=== PATIENT | male | born 1950 | race Caucasian/White ===

== ENCOUNTER 2023-02-09 13:55 | Emergency (ER) | payer BC, MEDICARE ==
[~2023-02-09] VITALS: Ht 182.9 cm; Wt 85.3 kg
[~2023-02-09 13:55] MED LIST: AEC81 PO; DILT180C77 PO; DUTA.5 PO; ESOM40CA PO; FISH1CAP20 PO; HYDR25TA PO; LISI5TAB21 PO; METO-391 PO
[2023-02-09 15:28] LABS: BASOPHILS # (AUTO) 0.03 K/uL (0.00-0.20); BASOPHILS % (AUTO) 0.6 % (0.0-5.0); EOSINOPHILS # (AUTO) 0.01 K/uL (0.00-0.70); EOSINOPHILS % (AUTO) 0.2 % (0.0-8.0); HEMATOCRIT 34.2 % (42-54); IMMATURE GRANULOCYTE ABSOLUTE 0.03 K/uL (0-1); LYMPHOCYTES # (AUTO) 0.5 K/uL (1.0-4.8); LYMPHOCYTES % (AUTO) 11.1 % (21.0-51.0); MEAN CORPUSCULAR HEMOGLOBIN 31.9 pg (27.0-33.0); MEAN CORPUSCULAR HGB CONC 33.9 g/dL (32.0-36.0); MONOCYTES # (AUTO) 0.6 K/uL (0.1-1.0); MONOCYTES % (AUTO) 13.1 % (3.0-13.0); NEUTROPHILS # (AUTO) 3.5 K/uL (1.8-7.7); NEUTROPHILS % (AUTO) 74.4 % (40.0-77.0); PLATELET COUNT (AUTO) 181 K/uL (130-400); RED BLOOD CELL COUNT(AUTO) 3.64 MIL/uL (4.50-6.20); WHITE BLOOD COUNT (AUTO) 4.7 K/uL (4.8-10.8)
[2023-02-09 15:37] LABS: INR < 0.93 (0.85-1.15); PROTHROMBIN TIME 10.1 SEC (9.6-11.6)
[2023-02-09 15:39] LABS: PARTIAL THROMBOPLASTIN TIME 26.5 SEC (26.3-35.5)
[2023-02-09 15:56] LABS: APPEARANCE,URINE CLEAR (CLEAR); BILIRUBIN,URINE NEGATIVE (NEGATIVE); COLOR,URINE YELLOW (YELLOW); GLUCOSE, URINE (UA) NEGATIVE (NEGATIVE); KETONES,URINE NEGATIVE (NEGATIVE); LEUKOCYTE ESTERASE ,URINE NEGATIVE Leu/uL (NEGATIVE); NITRATE,URINE NEGATIVE (NEGATIVE); OCCULT BLOOD,URINE NEGATIVE (NEGATIVE); PH,URINE 5.5 (5.0-8.0); PROTEIN,URINE NEGATIVE (NEGATIVE); UROBILINOGEN,URINE 0.2 mg/dL (0.2-1.0)
[2023-02-09 16:00] LABS: ADD UA MICROSCOPIC NO
[2023-02-09 16:11] LABS: ALBUMIN 2.7 g/dL (3.5-5.0); BILIRUBIN,TOTAL 5.8 mg/dL (0.2-1.0); CREATININE 1.2 mg/dL (0.5-1.5); MAGNESIUM 1.7 mg/dL (1.80-2.40); POTASSIUM 3.6 mmol/L (3.5-5.1); TOTAL PROTEIN, SERUM 6.3 g/dL (6.0-8.3)
[2023-02-09 17:16] VITALS: BP 168/79; PULSE 78; RESP 18; O2SAT 98
[2023-02-09] MEDS ORDERED: MAGNESIUM OXIDE 400 MG TABLET PO ONE (18:00)
== END 2023-02-09 17:17 | disposition home or self-care (01) ==
LOC: EDH 13:55
DX: I10 Essential (primary) hypertension (principal); R79.89 Other specified abnormal findings of blood chemistry; E83.42 Hypomagnesemia; Z79.82 Long term (current) use of aspirin; Z79.899 Other long term (current) drug therapy; Z90.49 Acquired absence of other specified parts of digestive tract
CPT/HCPCS: 36415; 71045; 80053; 81003; 83735; 84484; 85025; 85610; 85730; 93005

== ENCOUNTER → 2023-12-20 | Outpatient (CLI) | payer BC, MEDICARE ==
[2023-12-20] MEDS: REGADENOSON 0.4 MG/5 ML PF SYG IVP ONE (11:38)
== END | disposition home or self-care (01) ==
LOC: SHCH 07:36
PROVIDERS: ATTEND Internal Medicine Cardiovascular Disease
DX: R94.31 Abnormal electrocardiogram [ECG] [EKG] (principal); R07.9 Chest pain, unspecified
CPT/HCPCS: 78452; 96374; 93017; J2785; A9500 ×2

== ENCOUNTER → 2024-03-23 | Outpatient (CLI) | payer BC, MEDICARE | END | disposition home or self-care (01) | LOC: SHCH 08:45 | PROVIDERS: ATTEND Internal Medicine Cardiovascular Disease | DX: I35.0 Nonrheumatic aortic (valve) stenosis (principal); R01.1 Cardiac murmur, unspecified | CPT/HCPCS: 93306 ==

== ENCOUNTER → 2024-12-07 | Outpatient (CLI) | payer BC ==
--- NOTE | 2024-12-07 20:30 | HMCSR ---
APPROVED REPORT EXAM: Two-dimensional and M-mode echocardiogram with Doppler and color Doppler. INDICATION ICD: Shortness of breath R06.02 Hypertension 2D Dimensions RVDd3.8 cmLVEF(%)75.5 (>50%)LVED Vol(simp.)105.0 mL IVSd1.2 (0.7-1.1cm)FS(%)44 %LVES Vol(simp.)44.0 mL LVDd4.0 (3.8-5.6cm)LA (2D)3.8 (1.6-4.0cm)LVEF(%, simp.)59 % PWd1.3 (0.7-1.1cm)Ao Root(2D)4.0 (2.0-3.7cm)LA ESV INDEX (BP)19.65 mL/m2 LVDs2.2 (2.5-4.0cm)LVOT diam2.4 (1.8-2.4cm) IVC diam1.5 cm M-Mode Dimensions EPSS0.6 cm LA (MM)3.4 (1.6-4.0cm) Ao Root(MM)3.1 (2.0-3.7cm) Aortic Valve AoV Vmax3.1 m/Diego Peak GR37.3 mmHgLVOT Vmax1.2 m/s AoV VTI0.7 mAo Mean GR21.9 mmHgLVOT VTI0.28 m YADIRA (VMAX)1.78 cm2AVA (VTI) 1.8 cm2 Mitral Valve MV E Vmax68.4 cm/sDECEL Xpfy266 ms MV A Vmax68.4 cm/sP 1/2 T74 ms E/A ratio1.0MVA (PHT)3.0 cm2 TDI E/E' Medial7.2E/E' Lateral7.2 Medial E' Peak V9.54 cm/sLateral E' Peak V9.48 cm/s Pulmonary Valve PV Vmax0.8 m/sPV VTI0.17 mPV Mean GR1.5 mmHg PV Peak GR2.8 mmHg Tricuspid Valve TR Vmax2.0 m/sRVSP15.4 mmHg TR Peak GR15.4 mmHg Left Ventricle The left ventricle is normal size. Mild concentric left ventricular hypertrophy. LVEF is 55-60%. The left ventricular diastolic function is normal. Right Ventricle The right ventricle is normal size. Right ventricular systolic function is mildly reduced. Atria The left atrium size is normal. The right atrium size is normal. Aortic Valve The aortic valve is trilealfet, calcified and displays decreased opening. No aortic regurgitation is present. There is moderate valvular aortic stenosis. Peak velocity is 3.1 m/s. Highest mean aortic va lve gradient is 22mmHg, pk 37mmHg. Mitral Valve Mild mitral annular calcification is present. There is no mitral valve regurgitation noted. There is no mitral valve stenosis. Tricuspid Valve The tricuspid valve is normal in structure. There is trace tricuspid valve regurgitation noted. Pulmonic Valve The pulmonary valve is not well visualized. There is no pulmonic valvular regurgitation. Great Vessels The aortic root is normal in size. The IVC is normal in size and collapses >50% with inspiration. Pericardium There is no pericardial effusion. Other Information Quality : GoodRhythm : NSR Conclusion LVEF is 55-60%. Mild concentric left ventricular hypertrophy. The left ventricular diastolic function is normal. Moderate aortic stenosis. (Vpk 3.1 m/s. MG of 22mmHg, PK 37mmHg)
== END | disposition home or self-care (01) ==
LOC: RAH 12:34
PROVIDERS: ATTEND Internal Medicine Nephrology
DX: I08.0 Rheumatic disorders of both mitral and aortic valves (principal); I11.9 Hypertensive heart disease without heart failure; R06.02 Shortness of breath
CPT/HCPCS: 93306